=== PATIENT | male | born 1975 | race Caucasian/White ===

== ENCOUNTER 2018-08-18 15:55 | Emergency (ER) | payer OTHER, BC ==
[2018-08-18] MEDS ORDERED: Diphtheria,Pertussis(Acell),Tetanus Vaccine 0.5 ML Syringe IM ONE (16:06)
[2018-08-18] MEDS ORDERED: HYDROmorphone 1 MG/ML Syringe IVPUSH ONE (16:09)
[2018-08-18] MEDS ORDERED: Sodium Chloride 0.9% 10 ML Syringe FLUSH PRN (16:09)
[2018-08-18] MEDS ORDERED: Ondansetron 4 MG/2 ML SDV IVPUSH ONE (16:09)
[2018-08-18] MEDS ORDERED: Sodium Chloride 0.9% 2.5 ML Syringe FLUSH PRN (16:09)
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
[2018-08-18] MEDS ORDERED: Ketorolac 30 MG/ML SDV IVPUSH ONE (16:12)
[2018-08-18] MEDS ORDERED: ceFAZolin 1 GM in Premix Bag 1 BAG IV ONE (16:22)
--- NOTE | 2018-08-19 09:09 | CR ---
EXAM DATE: 08/18/18 PATIENT'S AGE: 43 Patient: CALLIE LEAVITT Facility: [place], [place] Site . Site : [id number] Study: XRay Extremity Right [id number] 4:37:13 PM Ordering Physician: Emory Morgan Final Report: INDICATION: Pain, patternmaker pressure cast injury. COMPARISON: None. TECHNIQUE: Two views right foot. FINDINGS: Extensive soft tissue injury to the dorsal aspect of the forefoot including subcutaneous edema and suspicion of subcutaneous emphysema along with curvilinear ill defined densities. Abnormal lucencies extend to the lateral hindfoot soft tissues. Degenerative spurring at the 1st MTP joint. Posterior calcaneal spur. No fracture. IMPRESSION: Dorsal soft tissue soft tissue swelling with associated subcutaneous radiolucencies (emphysema/edema) without bony involvement. Dictated by Chris De La Rosa MD @ Aug 18 2018 4:42PM (Electronic Signature) Report Signed by Proxy. VICTOR M
== END 2018-08-18 17:40 ==
LOC: MW.ED 15:55
DX: S91.311A Laceration without foreign body, right foot, initial encounter (principal); F17.210 Nicotine dependence, cigarettes, uncomplicated; W45.8XXA Other foreign body or object entering through skin, initial encounter; Y93.19 Activity, other involving water and watercraft; Z23 Encounter for immunization
CPT/HCPCS: 73620; 90471; 90715; 96365; 96375; 99284; J0690; J1885; J2405